=== PATIENT | male | born 1965 | race Caucasian/White ===

== ENCOUNTER 2016-10-09 15:22 | Emergency (ER) | payer OTHER ==
--- NOTE | ~2016-10-09 | EKG ---
PATIENT: HAI GUILLORY UNIT #: [id number] Ventricular Rate: 104 BPM Atrial Rate: 104 BPM P-R Interval: 146 ms QRS Duration: 104 ms Q-T Interval: 342 ms QTC Calculation(Bezet): 449 ms P [place]: 15 degrees Calculated R [place]: 78 degrees Calculated T [place]: 33 degrees Diagnosis Line: Sinus tachycardia Diagnosis Line: Incomplete right bundle branch block Diagnosis Line: Borderline ECG Diagnosis Line: When compared with ECG of 09-MAY-2016 03:15, Diagnosis Line: Questionable change in QRS axis Diagnosis Line: Confirmed by MAGALIS OSUNA MD ([id number]) on Diagnosis Line: 10/12/2016 12:03:06 PM INTERPRETING MD: ENRRIQUE WIGGINS
--- NOTE | ~2016-10-09 | CR72 ---
[facility]. [facility] A Service of [facility] & [facility] RADIOLOGY TEXT RESULTS PATIENT: HAI GUILLORY LOCATION: SED : 67 UNIT #: [id number] AGE: [address]: Aron Velez MD SEX: M ORDER DR: [id number] [place] [id number] MR#: [id number] Acc #: [id number] NAME: HAI GUILLORY : 1965 SEX: M STUDY DATE/TIME: 10/09/2016 15:37 UNIT: SED ROOM: STUDY DESCRIPTION: CR Chest Single View Portable Attending Physician: Aron Velez M.D. Ordering Physician: Aron Velez M.D. Primary Care Physician: No Primary Care Physician MEDICAL IMAGING REPORT This report is preliminary unless electronic signature is present. EXAM Portable chest, 10/09/2016. COMPARISON 05/06/2016 HISTORY Chest pain beginning today at 2 o'clock. FINDINGS A portable view of the chest was obtained. The heart size and vascularity are normal, and the lungs are clear. The bones are unremarkable. IMPRESSION No active disease. Dictated by... Wilber Marie M.D. THIS IS AN ELECTRONICALLY VERIFIED REPORT Wilber Marie M.D. at 10/10/2016 8:21 AM [place] TD: 10/09/2016 16:52 JOB #: [id number] MEDICAL IMAGING REPORT Page 1 of 1
--- NOTE | ~2016-10-09 | US67 ---
[facility] A Service of [facility] RADIOLOGY TEXT RESULTS PATIENT: HAI GUILLORY LOCATION: SED : 67 UNIT #: [id number] AGE: [address]: Aron Velez MD SEX: M ORDER DR: [id number] [place] [id number] MR#: [id number] Acc #: [id number] NAME: HAI GUILLORY : 1965 SEX: M STUDY DATE/TIME: 10/09/2016 15:43 UNIT: SED ROOM: STUDY DESCRIPTION: US Gallbladder Attending Physician: Aron Velez M.D. Ordering Physician: Aron Velez M.D. Primary Care Physician: Primary Care Physician No MEDICAL IMAGING REPORT This report is preliminary unless electronic signature is present. EXAM Gallbladder ultrasound. DATE 10/09/2016 HISTORY Chest, back and right upper quadrant abdominal pain for [address] abdomen and pelvis with contrast 05/09/2016 FINDINGS The pancreas is completely obscured by bowel gas. The liver demonstrates coarsened echotexture with diminished acoustic transmission suggesting features of diffuse hepatic steatosis. The liver size is upper limits normal, 18.3 cm in length. Right kidney measures 12.1 cm in length without focal cortical lesion, shadowing stone or hydronephrosis. Gallbladder appears free of shadowing stone, sludge, wall thickening or pericholecystic fluid. The common bile duct is not visualized on this examination. No intrahepatic biliary ductal dilation is seen. IMPRESSION 1. No sonographic gallbladder abnormality. No evidence of cholelithiasis. 2. The common bile duct is not visualized on this examination. No intrahepatic biliary ductal dilation is seen. 3. The pancreas is completely obscured by bowel gas. 4. Features of hepatic steatosis. 5. The patient ate 30 minutes prior to the examination, likely in part accounting for bowel obscuration of abdominal structures. [facility] A Service of [facility] RADIOLOGY TEXT RESULTS PATIENT: HAI GUILLORY LOCATION: SED : 67 UNIT #: [id number] AGE: [address]: Aron Velez MD SEX: M ORDER DR: Dictated by... Audra Aguillon M.D. THIS IS AN ELECTRONICALLY VERIFIED REPORT Audra Aguillon M.D. at 10/10/2016 7:04 AM [facility]/wally TD: 10/09/2016 17:18 JOB #: [id number] MEDICAL IMAGING REPORT Page 1 of 1
[~2016-10-09 15:22] MED LIST: ALBUTEROL17 GM INH; AMOXICILLIN PO; BACTRIM DS TABL1 TAB PO; CLEOCIN PO; DICYCLOMINE HCL20 MG PO; FLEXERIL10 MG PO; IBUPROFEN800 MG PO; KEFLEX PO; KEFLEX500 MG PO; LANTUS100 U/ML; LISINOPRIL PO; METFORMIN HCL500 M1 PO; METFORMIN PO; NORCO1 TAB 10/3 PO; PENICILLIN; TUSSIONEX PENN473 ML PO; TYLENOL #3 PO; VOLTAREN50 MG PO; VOLTAREN75 MG PO; ZESTORETIC 20/11 TAB PO; ZOFRAN ODT4 MG/UDTAB PO
[2016-10-09 15:42] LABS: BASOPHIL# 0.1 X10e3 (0-0.3); EOSINOPHIL# 0.2 X10e3 (0-0.7); EOSINOPHIL% 2.9 % (0.0-7.0); HEMOGLOBIN 16.6 gm/dL (13.0-16.0); LYMPHOCYTE# 2.2 X10e3 (1.0-3.5); LYMPHOCYTE% 29.5 % (17.0-45.0); MEAN CELL VOLUME 86.3 FL (83-96); MEAN CORPUSCULAR HEMOGLOBIN 29.1 PG (28-34); MEAN CORPUSCULAR HGB CONC 33.8 g/dL (30-36); MEAN PLATELET VOLUME 9.8 FL (6.5-11.5); MONOCYTE# 0.7 X10e3 (0-1.0); MONOCYTE% 9.2 % (3.0-12.0); NEUTROPHIL# 4.3 X10e3 (1.5-7.1); NEUTROPHIL% 57.4 % (40-75); PLATELET COUNT 174 X10e3 (140-420); RED BLOOD COUNT 5.68 X10e (3.90-5.60); RED CELL DISTRIBUTION WIDTH 13.3 % (11.0-15.5); WHITE BLOOD COUNT 7.5 X10e3 (4.0-10.5)
[2016-10-09 15:51] LABS: ALBUMIN SERUM 4.4 g/dL (3.5-5.0); BILIRUBIN, DIRECT 0.2 mg/dL (0.0-0.2); BILIRUBIN,INDIRECT 0.6 mg/dL (0.0-0.9); BILIRUBIN,TOTAL 0.8 mg/dL (0.2-2.0); BUN/CREATININE RATIO 12.5; CALCIUM SERUM 9.9 mg/dL (8.4-10.2); CREATININE SERUM 1.2 mg/dL (0.6-1.4); GLOM FILT RATE Estimated 70.1 mL/min (>60); POTASSIUM 4.6 mmol/L (3.5-5.1); PROTEIN TOTAL SERUM 7.5 g/dL (6.0-8.3)
[2016-10-09 15:52] LABS: POC - CKMB 1.2 ng/mL (0.0-7.9)
[2016-10-09 15:53] LABS: POC - TROPONIN <0.05 ng/mL (<=0.05)
[2016-10-09 15:59] LABS: DIFF IND NO
[2016-10-09 16:33] LABS: URINE SOURCE CLEAN CATCH
[2016-10-09 16:35] LABS: URINE APPEARANCE CLEAR; URINE BILIRUBIN NEG (NEG); URINE BLOOD NEG (NEG); URINE COLOR YELLOW; URINE GLUCOSE 300 MG/DL (NORM); URINE KETONE NEG (NEG); URINE LEUKOCYTE ESTERASE NEG (NEG); URINE NITRATE NEG (NEG); URINE PROTEIN NEG (NEG); URINE UROBILINOGEN 0.2 MG/DL (NORM)
[2016-10-09 16:37] LABS: MICRO INDICATED? NO
== END 2016-10-09 20:26 ==
LOC: SED 15:22
PROVIDERS: Emergency Medicine
DX: K29.00 Acute gastritis without bleeding (principal); K80.50 Calculus of bile duct without cholangitis or cholecystitis without obstruction; R07.89 Other chest pain; E11.9 Type 2 diabetes mellitus without complications; I10 Essential (primary) hypertension; Z79.899 Other long term (current) drug therapy; Z79.4 Long term (current) use of insulin; Z79.84 Long term (current) use of oral hypoglycemic drugs
CPT/HCPCS: 71010; 76705; 80048; 80076; 81003; 82553; 82947; 83690; 84484; 85025; 93005; 96361; 96374; 96375; 99285; J1170; J2405; J2543